=== PATIENT | female | born 1950 | race African-American/Black ===

== ENCOUNTER 2016-12-23 06:30 | Emergency (ER) | payer OTHER, MEDICAID ==
[~2016-12-23] VITALS: Ht 165.1 cm; Wt 50.0 kg
[~2016-12-23 06:30] MED LIST: 1-ME1LIQ PO; ALEN70TA39 PO; CALC600T44 PO; HYDR12.56 PO; NAPR220T95 PO; OXYC1SOL5 PO; RANI150 PO; VITA-13 PO
[2016-12-23 06:32] VITALS: BP 158/70; PULSE 82; RESP 18; TEMP 97.9; O2SAT 99
[2016-12-23] MEDS ORDERED: ONDANSETRON HCL 4 MG/2 ML VIAL IVP ONE (07:15)
[2016-12-23] MEDS ORDERED: SODIUM CHLORIDE 0.9% FLUSH 10 ML FLUSH IV FLUSH PRN (07:15)
[2016-12-23] MEDS ORDERED: SODIUM CHLOR 0.9% 1000 ML INJ 1,000 ML IV SCH (07:15)
[2016-12-23] MEDS ORDERED: MORPHINE SULFATE 4 MG/ML INJ IV PUSH ONE (07:15)
--- NOTE | 2016-12-23 07:29 | PD ---
HPI Chief Complaint: Pain: Acute or Chronic Time Seen by Provider: 07:04 Travel History International Travel<30 days: No Contact w/Intl Traveler<30days: No Traveled to known affect area: No History of Present Illness HPI Patient is a 66 year old female with history of hypertension, hx of colon cancer - presents to ER with complaints of rectal pain. Patient reports that she tried to have a bowel movement last night but was unable to. Reports that she does not have bowel movement every day. Reports that around 11pm last night , she has having rectal pain. Reports "it hurts when I sit, it hurts when I lay down." Reports "I just feel uncomfortable." Denies fever/chills. Patient also reports that she has not been able to urinate all morning. She did urinate last night. Patient reports hx of colon cancer s/p resection, colostomy and colostomy reversal - reports that she did have an EGD last month which was negative. PFSH Past Medical History Arthritis: No Asthma: Yes Blood Disorders: No Anxiety: No Depression: No Heart Rhythm Problems: No Cancer: Yes Cardiovascular Problems: Yes High Cholesterol: No Chemotherapy: Yes Chest Pain: Yes Congestive Heart Failure: No COPD: No Cerebrovascular Accident: Yes (10/14/11) Diabetes: No Diminished Hearing: No Endocrine: No Gastrointestinal Disorders: Yes (GERD) Genitourinary: No Hepatitis: No Hiatal Hernia: No Hypertension: Yes Immune Disorder: No Musculoskeletal: No Neurologic: Yes (stroke 5 years ago) Psychiatric: No Reproductive: No Respiratory: Yes Radiation Therapy: Yes Sleep Apnea: No Thyroid Disease: No PNEUMOCCOCAL Vaccine (Year): 2 ?: Not Menopausal: Yes : 2 Para: 1 Miscarriage: 1 Past Surgical History Abdominal Surgery: Yes (05/05 EXP LAP COLECTOMY; ANTERIOR RESECTION ILEOSTOMY; REVERSE COLOSTOMY ) AICD: No Body Medical Devices: colostomy Cardiac Surgery: No Section: Yes Ear Surgery: No Endocrine Surgery: No Eye Surgery: No Genitourinary Surgery: No Gynecologic Surgery: Yes (; HYSTERECTOMY) Hysterectomy: Yes Joint Replacement: No Oral Surgery: No Pacemaker: No Thoracic Surgery: No Other Surgery: Yes (Hysterectomy) Family History Family Hypercholesterolemia: Yes Social History Alcohol Use: No Tobacco Use: No Substance Use: No Allergies-Medications (Allergen,Severity, Reaction): Coded Allergies: Penicillin (Verified Allergy, Unknown, 6/3/17) Aspirin (Verified Adverse Reaction, Severe, Nausea/Vomiting, 12/23/16) INTERMEDIATE REACTION Tylenol/Codeine (Verified Adverse Reaction, Severe, Nausea/Vomiting, ) Shakes ; INTERMEDIATE REACTION Reported Meds & Prescriptions Reported Meds & Active Scripts Active Miralax Powder (Polyethylene Glycol 3350 Powder) 17 Gm Powd 17 Gm PO DAILY Mix and dissolve one measuring cap-ful (17 grams) in water or juice. Oxycodone/Acetaminophen 5-325 mg/5Ml (Oxycodone W/ Acetaminophen) 1 Tab Tab 2 Tab PO Q6H PRN Zantac 150 Mg Tab (Ranitidine HCl) 150 Mg Tab 150 Mg PO BID 1-Methyl 2-Pyrrolidinone (1-Methyl 2-Pyrrolidone (Bulk)) 10 Mg Tab 10 Mg PO DAILY Hydrochlorothiazide (Miscellaneous Medication) 12.5 Mg Cap 12.5 Mg PO BID caps Reported Aleve (Naproxen Sodium) 220 Mg Tab 220 Mg PO BID Vitamin D3 (Cholecalciferol) 1,000 Unit Tab 1,000 Unit PO DAILY Calcium (Calcium Carbonate) 600 Mg Tab 600 Mg PO DAILY Alendronate Sodium 70 Mg Tab 70 Mg PO Q7D Review of Systems General / Constitutional: No: Fever Eyes: No: Visual changes HENT: No: Headaches Cardiovascular: No: Chest Pain or Discomfort Respiratory: No: Shortness of Breath Gastrointestinal: Positive: Other (rectal pain), No: Abdominal Pain Genitourinary: No: Dysuria Musculoskeletal: No: Pain Skin: No Rash Neurologic: No: Weakness Psychiatric: No: Depression Endocrine: No: Polydipsia Hematologic/Lymphatic: No: Easy Bruising Physical Exam Narrative GENERAL: moderate distress SKIN: Focused skin assessment warm/dry. HEAD: Atraumatic. Normocephalic. EYES: Pupils equal and round. No scleral icterus. No injection or drainage. ENT: No nasal bleeding or discharge. Mucous membranes pink and moist. NECK: Trachea midline. No JVD. CARDIOVASCULAR: Regular rate and rhythm. No murmur appreciated. RESPIRATORY: No accessory muscle use. Clear to auscultation. Breath sounds equal bilaterally. GASTROINTESTINAL: Abdomen soft, non-tender, nondistended. Hepatic and splenic margins not palpable. Rectal exam: performed with RN at bedside - patient with small nonthrombosed external hemorrhoid, no bleeding, no obvious abscess MUSCULOSKELETAL: No obvious deformities. No clubbing. No cyanosis. No edema. NEUROLOGICAL: Awake and alert. No obvious cranial nerve deficits. Motor grossly within normal limits. Normal speech. PSYCHIATRIC: Appropriate mood and affect; insight and judgment normal. Data Data Last Documented VS Vital Signs Date Time Temp Pulse Resp B/P Pulse Ox O2 Delivery O2 Flow Rate FiO2 12/23/16 06:32 97.9 82 18 158/70 99 Room Air Orders Complete Blood Count With Diff (12/23/16 07:15) Comprehensive Metabolic Panel (12/23/16 07:15) Lipase (12/23/16 07:15) Prothrombin Time / Inr (Pt) (12/23/16 07:15) Act Partial Throm Time (Ptt) (12/23/16 07:15) Urinalysis - C+S If Indicated (12/23/16 07:15) Iv Access Insert/Monitor (12/23/16 07:15) Morphine Inj (Morphine Inj) (12/23/16 07:15) Ondansetron Inj (Zofran Inj) (12/23/16 07:15) Sodium Chlor 0.9% 1000 Ml Inj (Ns 1000 M (12/23/16 07:15) Sodium Chloride 0.9% Flush (Ns Flush) (12/23/16 07:15) Bladder Scan PRN (12/23/16 07:15) Hydrocortisone Supp (Hemorrhoidal Hc Sup (12/23/16 07:30) Fleets Enema (Adult) (Fleets Enema (Adul (12/23/16 08:30) Enema (12/23/16 08:48) Mineral Oil Enema (Fleet Mineral Oil Oly (12/23/16 10:00) Labs Laboratory Tests Test 12/23/16 07:25 White Blood Count 6.6 TH/MM3 Red Blood Count 4.97 MIL/MM3 Hemoglobin 13.8 GM/DL Hematocrit 40.7 % Mean Corpuscular Volume 81.9 FL Mean Corpuscular Hemoglobin 27.7 PG Mean Corpuscular Hemoglobin 33.9 % Concent Red Cell Distribution Width 16.1 % Platelet Count 371 TH/MM3 Mean Platelet Volume 8.0 FL Neutrophils (%) (Auto) 78.7 % Lymphocytes (%) (Auto) 10.6 % Monocytes (%) (Auto) 8.8 % Eosinophils (%) (Auto) 1.2 % Basophils (%) (Auto) 0.7 % Neutrophils # (Auto) 5.2 TH/MM3 Lymphocytes # (Auto) 0.7 TH/MM3 Monocytes # (Auto) 0.6 TH/MM3 Eosinophils # (Auto) 0.1 TH/MM3 Basophils # (Auto) 0.0 TH/MM3 CBC Comment DIFF FINAL Differential Comment Prothrombin Time 11.0 SEC Prothromb Time International 1.0 RATIO Ratio Activated Partial 24.5 SEC Thromboplast Time Sodium Level 141 MEQ/L Potassium Level 3.6 MEQ/L Chloride Level 105 MEQ/L Carbon Dioxide Level 29.3 MEQ/L Anion Gap 7 MEQ/L Blood Urea Nitrogen 14 MG/DL Creatinine 0.82 MG/DL Estimat Glomerular Filtration 84 ML/MIN Rate Random Glucose 99 MG/DL Calcium Level 9.3 MG/DL Total Bilirubin 0.3 MG/DL Aspartate Amino Transf 13 U/L (AST/SGOT) Alanine Aminotransferase 15 U/L (ALT/SGPT) Alkaline Phosphatase 45 U/L Total Protein 7.7 GM/DL Albumin 4.2 GM/DL Lipase 99 U/L MDM Medical Decision Making Medical Screen Exam Complete: Yes Emergency Medical Condition: Yes Interpretation(s) Vital Signs Date Time Temp Pulse Resp B/P Pulse Ox O2 Delivery O2 Flow Rate FiO2 12/23/16 06:32 97.9 82 18 158/70 99 Room Air Differential Diagnosis Hemorrhoids, rectal abscess, urinary retention Narrative Course Patient is a 66-year-old female who presents to emergency room with complaints of pain to her rectum since 11 PM last night. She reports that she has the urge to have a bowel movement, reports that she has been unable to urinate - Bladder scan performed, patient with around 100ml of urine in bladder. Patient also with c/o of rectal pain since 11pm, there is a small external hemorroid, no obvious source for pain. Labs as well as CT of abd/pelvis ordered to further evaluate etiology of rectal pain. Pts surgeon Dr. Fish was in the ER and evaluated patient, he performed rectal exam - concern for rectal impaction - patient was disimpacted in the ER, request enema. As per Dr. Fish, does not need CT of abdomen and pelvis at this time. Ct canceled by Dr. fish. Laboratory Tests Test 12/23/16 07:25 White Blood Count 6.6 TH/MM3 (4.0-11.0) Red Blood Count 4.97 MIL/MM3 (4.00-5.30) Hemoglobin 13.8 GM/DL (11.6-15.3) Hematocrit 40.7 % (35.0-46.0) Mean Corpuscular Volume 81.9 FL (80.0-100.0) Mean Corpuscular Hemoglobin 27.7 PG (27.0-34.0) Mean Corpuscular Hemoglobin 33.9 % Concent (32.0-36.0) Red Cell Distribution Width 16.1 % (11.6-17.2) Platelet Count 371 TH/MM3 (150-450) Mean Platelet Volume 8.0 FL (7.0-11.0) Neutrophils (%) (Auto) 78.7 % (16.0-70.0) Lymphocytes (%) (Auto) 10.6 % (9.0-44.0) Monocytes (%) (Auto) 8.8 % (0.0-8.0) Eosinophils (%) (Auto) 1.2 % (0.0-4.0) Basophils (%) (Auto) 0.7 % (0.0-2.0) Neutrophils # (Auto) 5.2 TH/MM3 (1.8-7.7) Lymphocytes # (Auto) 0.7 TH/MM3 (1.0-4.8) Monocytes # (Auto) 0.6 TH/MM3 (0-0.9) Eosinophils # (Auto) 0.1 TH/MM3 (0-0.4) Basophils # (Auto) 0.0 TH/MM3 (0-0.2) CBC Comment DIFF FINAL Differential Comment Prothrombin Time 11.0 SEC (9.8-11.6) Prothromb Time International 1.0 RATIO Ratio Activated Partial 24.5 SEC Thromboplast Time (24.3-30.1) Sodium Level 141 MEQ/L (136-145) Potassium Level 3.6 MEQ/L (3.5-5.1) Chloride Level 105 MEQ/L (98-107) Carbon Dioxide Level 29.3 MEQ/L (21.0-32.0) Anion Gap 7 MEQ/L (5-15) Blood Urea Nitrogen 14 MG/DL (7-18) Creatinine 0.82 MG/DL (0.50-1.00) Estimat Glomerular Filtration 84 ML/MIN (>89) Rate Random Glucose 99 MG/DL (74-106) Calcium Level 9.3 MG/DL (8.5-10.1) Total Bilirubin 0.3 MG/DL (0.2-1.0) Aspartate Amino Transf 13 U/L (15-37) (AST/SGOT) Alanine Aminotransferase 15 U/L (10-53) (ALT/SGPT) Alkaline Phosphatase 45 U/L (45-117) Total Protein 7.7 GM/DL (6.4-8.2) Albumin 4.2 GM/DL (3.4-5.0) Lipase 99 U/L (73-393) Patient is feeling much better while in the emergency room and did have multiple bowel movements. Patient will follow-up with Dr. Fish as outpatient , She will return to ER as needed. Patient feeling much better at this time. labs reviewed with patient in detail. Diagnosis Primary Impression: Constipation Qualified Code: K59.00 - Constipation, unspecified constipation type Additional Impression: Rectal pain Patient Instructions: General Instructions Additional Instructions: Please follow-up with Dr. Fish as outpatient Returns to the emergency room as needed Return to emergency room if symptoms return Scripts Polyethylene Glycol 3350 Powder (Miralax Powder)17 Gm Powd17 Gm PO DAILY #1 CAN Ref 0 Mix and dissolve one measuring cap-ful (17 grams) in water or juice. Prov:Courtney Ly DO 12/23/16 Disposition: 01 DISCHARGE HOME Condition: Stable Courtney Ly DO Dec 23, 2016 07:29
[2016-12-23] MEDS ORDERED: HYDROCORTISONE ACETATE 25 MG SUPP RECTAL SCH (07:30)
[2016-12-23 07:51] LABS: AUTOMATED NEUTROPHIL # 5.2 TH/MM3 (1.8-7.7); BASOPHIL % 0.7 % (0.0-2.0); EOSINOPHIL # 0.1 TH/MM3 (0-0.4); EOSINOPHIL % 1.2 % (0.0-4.0); HEMATOCRIT 40.7 % (35.0-46.0); HEMO FLAGS DIFF FINAL; LYMPH % 10.6 % (9.0-44.0); LYMPHOCYTE # 0.7 TH/MM3 (1.0-4.8); MEAN CELL VOLUME 81.9 FL (80.0-100.0); MEAN CORPUSCULAR HEMOGLOBIN 27.7 PG (27.0-34.0); MEAN CORPUSCULAR HGB CONC 33.9 % (32.0-36.0); MONO % 8.8 % (0.0-8.0); NEUT % 78.7 % (16.0-70.0); PLATELET COUNT 371 TH/MM3 (150-450); RED BLOOD COUNT 4.97 MIL/MM3 (4.00-5.30); RED CELL DISTRIBUTION WIDTH 16.1 % (11.6-17.2); WHITE BLOOD COUNT 6.6 TH/MM3 (4.0-11.0)
[2016-12-23 08:04] LABS: APTT (PATIENT) 24.5 SEC (24.3-30.1)
[2016-12-23 08:12] LABS: ANION GAP 7 MEQ/L (5-15); AST (GOT) 13 U/L (15-37); BICARBONATE 29.3 MEQ/L (21.0-32.0); BLOOD UREA NITROGEN 14 MG/DL (7-18); CHLORIDE 105 MEQ/L (98-107); GLOMERULAR FILTRATION RATE 84 ML/MIN (>89); POTASSIUM 3.6 MEQ/L (3.5-5.1); SODIUM (NA) 141 MEQ/L (136-145)
[2016-12-23 08:13] LABS: ALT (GPT) 15 U/L (10-53)
[2016-12-23 08:15] LABS: ALKALINE PHOSPHATASE 45 U/L (45-117); TOTAL BILIRUBIN ADULT 0.3 MG/DL (0.2-1.0)
[2016-12-23] MEDS ORDERED: SOD PHOSPHATE/SOD BIPHOSPHATE (ADULT) ENEMA 133ML RECTAL ONE (08:30)
[2016-12-23] MEDS ORDERED: MIRA3350 PO (09:56)
[2016-12-23] MEDS ORDERED: MINERAL OIL ENEMA 118 ML BTL RECTAL ONE (10:00)
== END 2016-12-23 11:14 | disposition home or self-care (01) ==
LOC: NEPE 06:30
DX: K59.00 Constipation, unspecified (principal); I10 Essential (primary) hypertension; I25.2 Old myocardial infarction; Z85.038 Personal history of other malignant neoplasm of large intestine
CPT/HCPCS: 80053; 83690; 85025; 85610; 85730; 96361; 96374; 96375; 99284; J2270; J2405; J7030